=== PATIENT | female | born 2000 | race Caucasian/White ===

== ENCOUNTER 2024-09-08 02:49 | Emergency (ER) | payer SELFPAY ==
[2024-09-08] MEDS ORDERED: Lidocaine Viscous Sol 2% 15 ml UD Cup ONE (03:05)
== END 2024-09-08 03:30 | disposition home or self-care (01) ==
LOC: CSHERS 02:49
DX: K08.89 Other specified disorders of teeth and supporting structures (principal); K04.01 Reversible pulpitis
CPT/HCPCS: 64400